=== PATIENT | female | born 1975 | race African-American/Black ===

== ENCOUNTER 2018-05-08 09:53 | Emergency (ER) | payer BC ==
[~2018-05-08] VITALS: Ht 152.4 cm; Wt 120.2 kg
[2018-05-08] MEDS ORDERED: KETOROLAC TROMETHAMINE 60 MG/2 ML VIAL IM ONE (10:15)
[2018-05-08 11:08] VITALS: BP 126/95
== END 2018-05-08 11:10 | disposition home or self-care (01) ==
LOC: FSED 09:53
DX: S46.812A Strain of other muscles, fascia and tendons at shoulder and upper arm level, left arm, initial encounter (principal); Y93.84 Activity, sleeping; Y92.003 Bedroom of unspecified non-institutional (private) residence as the place of occurrence of the external cause
CPT/HCPCS: 99282; J1885

== ENCOUNTER 2018-09-23 23:16 | Emergency (ER) | payer BC ==
[~2018-09-23] VITALS: Ht 152.4 cm; Wt 120.2 kg
[2018-09-23] MEDS ORDERED: ALBUTEROL SULF 0.083% NEB SOLN 3 ML NEB NEB STA (23:24)
--- NOTE | 2018-09-23 23:58 | Diagnostic Imaging Report ---
EXAM: XR CHEST 2 VIEWS DATE: 09/23/2018 12:00 AM INDICATION: Congestion/fever COMPARISON: None FINDINGS: Lines and Tubes: None Heart and Mediastinum: No acute cardiomediastinal findings. Lungs and Pleura: Mild perihilar bronchial wall thickening. Streaky opacities left lung base with no focal consolidation. Bones and Soft Tissues: No acute findings. IMPRESSION: 1. Probable bronchitis. Signed by: Dr. Jaron Lawrence MD on 09/23/2018 11:55 PM
[2018-09-24] MEDS ORDERED: PREDNISONE 20 MG TAB PO SCH (09:00)
== END 2018-09-24 00:21 | disposition home or self-care (01) ==
LOC: FSED 23:16
DX: R50.9 Fever, unspecified (principal); R05 Cough; J20.8 Acute bronchitis due to other specified organisms; I10 Essential (primary) hypertension; J45.909 Unspecified asthma, uncomplicated; E66.9 Obesity, unspecified
CPT/HCPCS: 71046; 87400; 99283

== ENCOUNTER 2021-10-26 05:36 | Emergency (ER) | payer BC ==
[~2021-10-26] VITALS: Ht 152.4 cm; Wt 120.2 kg
[2021-10-26] MEDS ORDERED: IBUPROFEN 600 MG TAB PO STA (06:28)
[2021-10-26] MEDS ORDERED: TAMIFLU75 MG PO (06:29)
[2021-10-26] MEDS ORDERED: IBUPROFEN 600 MG TAB ONE (06:31)
== END 2021-10-26 06:50 | disposition home or self-care (01) ==
LOC: FSED 06:12
DX: R50.9 Fever, unspecified (principal); J10.1 Influenza due to other identified influenza virus with other respiratory manifestations; B34.9 Viral infection, unspecified; I10 Essential (primary) hypertension; J45.909 Unspecified asthma, uncomplicated
CPT/HCPCS: 87400; 99283